=== PATIENT | female | born 1965 | race Two or more races ===

== ENCOUNTER 2020-06-19 15:15 | Outpatient (CLI) | payer MEDICARE | END 2020-06-19 23:59 | disposition home or self-care (01) | LOC: MSC 15:15 | PROVIDERS: ATTEND Internal Medicine | DX: I12.9 Hypertensive chronic kidney disease with stage 1 through stage 4 chronic kidney disease, or unspecified chronic kidney disease (principal); N18.9 Chronic kidney disease, unspecified; Z94.0 Kidney transplant status; T86.11 Kidney transplant rejection; C78.00 Secondary malignant neoplasm of unspecified lung; C53.9 Malignant neoplasm of cervix uteri, unspecified; J90 Pleural effusion, not elsewhere classified; M54.10 Radiculopathy, site unspecified; F32.9 Major depressive disorder, single episode, unspecified; I51.7 Cardiomegaly; Z79.52 Long term (current) use of systemic steroids; Z79.891 Long term (current) use of opiate analgesic; Z79.899 Other long term (current) drug therapy ==